=== PATIENT | female | born 1975 | race Caucasian/White ===

== ENCOUNTER 2018-12-04 03:45 | Emergency (ER) | payer SELFPAY, OTHER | END 2018-12-04 10:33 | disposition home or self-care (01) | LOC: JER 03:45 ==

== ENCOUNTER 2022-04-04 09:07 | Inpatient (IN) | payer OTHER ==
[2022-04-04 12:31] LABS: BASO % 0.3 % (0-2.0); EOS % 1.2 % (0-4.5); HEMATOCRIT 27.3 % (32.4-45.2); HEMOGLOBIN 9.2 GM/dL (10.7-15.3); LYMPH % 11.1 % (8-40); MCH 31.1 pg (25.7-33.7); MCHC 33.8 g/dl (32.0-36.0); MEAN CELL VOLUME 92.1 fl (80-96); MEAN PLT VOLUME 9.9 fl (7.5-11.1); MONO % 8.9 % (3.8-10.2); NEUT % 78.5 % (42.8-82.8); PLATELET COUNT 77 10^3/uL (134-434); RBC 2.97 M/mm3 (3.60-5.2); RDW 12.7 % (11.6-15.6); WHITE BLOOD COUNT 6.7 K/mm3 (4.0-10.0)
[2022-04-04 12:44] LABS: CHLORIDE 100 mmol/L (98-107); SODIUM 139 mmol/L (136-145)
[2022-04-04 12:47] LABS: ANION GAP 10 MMOL/L (8-16); BLOOD UREA NITROGEN 34.2 mg/dL (7-18); CO2 29 mmol/L (21-32); GLUCOSE,RANDOM 85 mg/dL (74-106)
[2022-04-04 12:50] LABS: SGPT/ALT 44 U/L (13-61)
[2022-04-04 12:51] LABS: BILIRUBIN,TOTAL 0.3 mg/dL (0.2-1); SGOT/AST 34 U/L (15-37); TOT PROT 5.7 g/dl (6.4-8.2)
[2022-04-04 12:53] LABS: ALK PHOS 198 U/L (45-117)
[2022-04-04 13:10] LABS: CALCIUM 16.7 mg/dL (8.5-10.1)
[2022-04-04] MEDS ORDERED: SODIUM CHLORIDE 1,000 ML IV ONE (13:14)
[2022-04-04] MEDS: CALCITONIN - SALMON SYNTHETIC 400 UNIT/2 ML VIAL IM SCH (18:08)
[2022-04-04] MEDS ORDERED: TRIMETHOBENZAMIDE HCL 200MG/2ML INJ IM ONE (18:24)
[2022-04-04] MEDS: SODIUM CHLORIDE 1,000 ML IV SCH (22:40)
[2022-04-05] MEDS ORDERED: traMADol HCL 50 MG TABLET PO ONE (00:03)
[2022-04-05] MEDS ORDERED: HEPARIN NA (PORCINE) 5,000 UNITS/ML 1ML VIAL ONE (00:40)
[2022-04-05] MEDS: CALCITONIN - SALMON SYNTHETIC 400 UNIT/2 ML VIAL IM SCH ×2 (01:18→12:28)
[2022-04-05] MEDS: HEPARIN NA (PORCINE) 5,000 UNITS/ML 1ML VIAL SQ SCH ×3 (01:18→14:29)
[2022-04-05 08:53] LABS: HEMATOCRIT 26.5 % (32.4-45.2); HEMOGLOBIN 9.1 GM/dL (10.7-15.3); MCH 31.5 pg (25.7-33.7); MCHC 34.3 g/dl (32.0-36.0); MEAN CELL VOLUME 91.8 fl (80-96); MEAN PLT VOLUME 10.2 fl (7.5-11.1); PLATELET COUNT 93 10^3/uL (134-434); RBC 2.89 M/mm3 (3.60-5.2); RDW 12.5 % (11.6-15.6); WHITE BLOOD COUNT 6.9 K/mm3 (4.0-10.0)
[2022-04-05 09:17] LABS: CHLORIDE 106 mmol/L (98-107); SODIUM 140 mmol/L (136-145)
[2022-04-05 09:25] LABS: BLOOD UREA NITROGEN 14.7 mg/dL (7-18)
[2022-04-05 09:26] LABS: ANION GAP 7 MMOL/L (8-16); CO2 27 mmol/L (21-32); GLUCOSE,RANDOM 122 mg/dL (74-106); MAGNESIUM 2.5 mg/dL (1.8-2.4); TOTAL IRON BINDING CAPACITY 183 ug/dL (250-450)
[2022-04-05 09:28] LABS: BILIRUBIN,TOTAL 0.8 mg/dL (0.2-1); CREATININE 1.8 mg/dL (0.55-1.3); IRON SERUM 98 ug/dL (50-175); PHOSPHOROUS 3.3 mg/dL (2.5-4.9); SGOT/AST 14 U/L (15-37); SGPT/ALT 18 U/L (13-61)
[2022-04-05 10:13] LABS: ALBUMIN 3.6 g/dl (3.4-5.0); ALK PHOS 69 U/L (45-117); CALCIUM 8.6 mg/dL (8.5-10.1); TOT PROT 7.8 g/dl (6.4-8.2)
[2022-04-05 12:07] LABS: LDH 516 U/L (84-246)
[2022-04-05] MEDS ORDERED: SODIUM CHLORIDE 1,000 ML IV SCH (16:40)
[2022-04-05] MEDS: SODIUM CHLORIDE 1,000 ML IV SCH (17:06)
[2022-04-06] MEDS: HEPARIN NA (PORCINE) 5,000 UNITS/ML 1ML VIAL SQ SCH ×4 (00:51→22:00)
[2022-04-06 08:19] LABS: BASO % 0.6 % (0-2.0); EOS % 2.3 % (0-4.5); HEMOGLOBIN 8.9 GM/dL (10.7-15.3); LYMPH % 10.4 % (8-40); MCH 31.3 pg (25.7-33.7); MCHC 34.3 g/dl (32.0-36.0); MEAN CELL VOLUME 91.3 fl (80-96); MEAN PLT VOLUME 9.7 fl (7.5-11.1); NEUT % 77.7 % (42.8-82.8); PLATELET COUNT 80 10^3/uL (134-434); RBC 2.85 M/mm3 (3.60-5.2); RDW 12.5 % (11.6-15.6)
[2022-04-06 08:40] LABS: CHLORIDE 104 mmol/L (98-107); SODIUM 141 mmol/L (136-145)
[2022-04-06 09:24] LABS: GLUCOSE,RANDOM 83 mg/dL (74-106)
[2022-04-06 09:25] LABS: SGOT/AST 34 U/L (15-37); SGPT/ALT 32 U/L (13-61)
[2022-04-06 09:26] LABS: ALBUMIN 2.9 g/dl (3.4-5.0); ANION GAP 12 MMOL/L (8-16); CO2 25 mmol/L (21-32)
[2022-04-06 09:31] LABS: BILIRUBIN,TOTAL 0.5 mg/dL (0.2-1)
[2022-04-06 09:50] LABS: ALK PHOS 211 U/L (45-117); BLOOD UREA NITROGEN 44.8 mg/dL (7-18); CALCIUM 14.9 mg/dL (8.5-10.1); TOT PROT 5.6 g/dl (6.4-8.2)
[2022-04-06] MEDS ORDERED: POTASSIUM CHLORIDE TABS 20 MEQ TABLET.ER (FP) PO ONE (11:32)
[2022-04-06] MEDS: CALCITONIN - SALMON SYNTHETIC 400 UNIT/2 ML VIAL IM SCH ×2 (13:18→21:59)
[2022-04-06] MEDS: SODIUM CHLORIDE 1,000 ML IV SCH ×2 (13:19→22:00)
[2022-04-06 15:33] VITALS: BMI 20.2
[2022-04-06] MEDS: traMADol HCL 50 MG TABLET PO PRN (15:33)
[2022-04-06 22:01] LABS: PH,URINE 7.5 (5.0-8.0); URINE APPEARANCE CLEAR; URINE BILIRUBIN NEGATIVE (NEGATIVE); URINE COLOR YELLOW; URINE GLUCOSE (UA) NEGATIVE (NEGATIVE); URINE KETONE NEGATIVE (NEGATIVE); URINE LEUK ESTERASE NEGATIVE (NEGATIVE); URINE NITRITE NEGATIVE (NEGATIVE); URINE PROTEIN NEGATIVE (NEGATIVE); URINE UROBILINOGEN 0.2 mg/dL (0.2-1.0)
[2022-04-07] MEDS: HEPARIN NA (PORCINE) 5,000 UNITS/ML 1ML VIAL SQ SCH ×3 (06:21→22:42)
[2022-04-07 10:58] LABS: CHLORIDE 107 mmol/L (98-107); SODIUM 139 mmol/L (136-145)
[2022-04-07 11:05] LABS: ANION GAP 11 MMOL/L (8-16); BLOOD UREA NITROGEN 34.5 mg/dL (7-18); CO2 21 mmol/L (21-32); GLUCOSE,RANDOM 78 mg/dL (74-106); MAGNESIUM 1.6 mg/dL (1.8-2.4)
[2022-04-07 11:06] LABS: ALBUMIN 2.9 g/dl (3.4-5.0)
[2022-04-07 11:09] LABS: CREATININE 2.4 mg/dL (0.55-1.3)
[2022-04-07 11:10] LABS: BILIRUBIN,TOTAL 0.4 mg/dL (0.2-1); SGOT/AST 41 U/L (15-37); SGPT/ALT 30 U/L (13-61); TOT PROT 5.8 g/dl (6.4-8.2)
[2022-04-07 11:11] LABS: ALK PHOS 217 U/L (45-117)
[2022-04-07 11:17] LABS: CALCIUM 14.2 mg/dL (8.5-10.1)
[2022-04-07] MEDS ORDERED: MAGNESIUM OXIDE 400 MG TABLET (FP) PO ONE (11:34)
[2022-04-07] MEDS: SODIUM CHLORIDE 1,000 ML IV SCH (12:20)
[2022-04-07] MEDS: CALCITONIN - SALMON SYNTHETIC 400 UNIT/2 ML VIAL IM SCH ×2 (12:54→23:00)
[2022-04-07] MEDS: traMADol HCL 50 MG TABLET PO PRN (15:09)
[2022-04-07] MEDS ORDERED: MAGNESIUM SULF 50% (8.12 MEQ/2 ML-1 GM VIAL) IVPB ONE (20:02)
[2022-04-07] MEDS ORDERED: MAGNESIUM 1GM/D5W - 1 GM/100 ML IVPB IVPB ONE (21:08)
[2022-04-08] MEDS: HEPARIN NA (PORCINE) 5,000 UNITS/ML 1ML VIAL SQ SCH ×3 (06:31→21:13)
[2022-04-08 09:19] LABS: ALBUMIN 2.8 g/dl (3.4-5.0); CALCIUM 12.7 mg/dL (8.5-10.1); MAGNESIUM 1.8 mg/dL (1.8-2.4)
[2022-04-08 09:22] LABS: CREATININE 2.1 mg/dL (0.55-1.3); PHOSPHOROUS 2.6 mg/dL (2.5-4.9)
[2022-04-08 09:23] LABS: BILIRUBIN,TOTAL 0.3 mg/dL (0.2-1)
[2022-04-08 09:24] LABS: TOT PROT 5.2 g/dl (6.4-8.2)
[2022-04-08] MEDS ORDERED: POTASSIUM CHLORIDE TABS 20 MEQ TABLET.ER (FP) PO ONE (12:09)
[2022-04-08] MEDS: SODIUM CHLORIDE 1,000 ML IV SCH (12:38)
[2022-04-08 15:07] LABS: ASLO SCREEN <20.0 IU/mL (0.0-200.0)
[2022-04-08 15:07] LABS: THYROID STIM IMMUNOGLOBULIN <0.10 IU/L (0.00-0.55)
[2022-04-08] MEDS: traMADol HCL 50 MG TABLET PO PRN (15:30)
[2022-04-09] MEDS: HEPARIN NA (PORCINE) 5,000 UNITS/ML 1ML VIAL SQ SCH ×3 (05:36→21:46)
[2022-04-09] MEDS ORDERED: POTASSIUM CHLORIDE TABS 20 MEQ TABLET.ER (FP) PO ONE (11:29)
[2022-04-09] MEDS: SODIUM CHLORIDE 1,000 ML IV SCH (14:01)
[2022-04-09] MEDS: traMADol HCL 50 MG TABLET PO PRN (16:32)
[2022-04-09 18:07] LABS: FREE KAPPA,SERUM 56.1 mg/L (3.3-19.4)
[2022-04-09 19:07] LABS: ANTIGLOMERULAR BASEMENT MEN.AB <0.2 units (0.0-0.9); ATYPICAL pANCA <1:20 titer (Neg:<1:20); C-ANCA <1:20 titer (Neg:<1:20)
[2022-04-09] MEDS: MELATONIN 5 MG TABLETS PO PRN (21:46)
[2022-04-10] MEDS: HEPARIN NA (PORCINE) 5,000 UNITS/ML 1ML VIAL SQ SCH ×3 (05:19→21:04)
[2022-04-10 07:50] LABS: BASO % 0.4 % (0-2.0); EOS % 4.1 % (0-4.5); HEMATOCRIT 23.6 % (32.4-45.2); HEMOGLOBIN 8.1 GM/dL (10.7-15.3); LYMPH % 21.1 % (8-40); MCH 31.2 pg (25.7-33.7); MCHC 34.4 g/dl (32.0-36.0); MEAN CELL VOLUME 90.8 fl (80-96); MEAN PLT VOLUME 9.3 fl (7.5-11.1); MONO % 7.7 % (3.8-10.2); NEUT % 66.7 % (42.8-82.8); PLATELET COUNT 67 10^3/uL (134-434); RDW 12.4 % (11.6-15.6); WHITE BLOOD COUNT 4.3 K/mm3 (4.0-10.0)
[2022-04-10 08:08] LABS: ALBUMIN 2.6 g/dl (3.4-5.0); BLOOD UREA NITROGEN 13.2 mg/dL (7-18); CALCIUM 12.3 mg/dL (8.5-10.1); MAGNESIUM 1.8 mg/dL (1.8-2.4)
[2022-04-10 08:11] LABS: CREATININE 1.9 mg/dL (0.55-1.3); PHOSPHOROUS 2.5 mg/dL (2.5-4.9)
[2022-04-10 08:12] LABS: BILIRUBIN,TOTAL 0.2 mg/dL (0.2-1)
[2022-04-10 08:13] LABS: TOT PROT 5.1 g/dl (6.4-8.2)
[2022-04-10] MEDS ORDERED: POTASSIUM CHLORIDE TABS 20 MEQ TABLET.ER (FP) PO ONE (09:37)
[2022-04-10 12:22] LABS: HIV INTERPRETATION NEGATIVE (NEGATIVE)
[2022-04-10] MEDS: POTASSIUM CHLORIDE 10 MEQ in SODIUM CHLORIDE 0.45% 1,000 ML IVPB SCH ×2 (17:01→21:04)
[2022-04-10] MEDS ORDERED: MAGNESIUM HYDROX 2400MG/30ML ORAL SUSPENSION 30 ML CUP PO ONE (17:07)
[2022-04-10] MEDS: MELATONIN 5 MG TABLETS PO PRN (21:04)
[2022-04-11] MEDS: HEPARIN NA (PORCINE) 5,000 UNITS/ML 1ML VIAL SQ SCH ×3 (06:00→21:03)
[2022-04-11] MEDS: POTASSIUM CHLORIDE 10 MEQ in SODIUM CHLORIDE 0.45% 1,000 ML IVPB SCH ×3 (06:00→15:57)
[2022-04-11] MEDS: METHIMAZOLE 5 MG TABLET PO SCH ×2 (10:08→21:04)
[2022-04-11 13:22] LABS: CALCIUM 13.5 mg/dL (8.5-10.1)
[2022-04-11 13:23] LABS: BLOOD UREA NITROGEN 9.1 mg/dL (7-18)
[2022-04-11 13:25] LABS: CREATININE 1.8 mg/dL (0.55-1.3)
[2022-04-11 13:27] LABS: BILIRUBIN,TOTAL 0.3 mg/dL (0.2-1); TOT PROT 6.1 g/dl (6.4-8.2)
[2022-04-11 13:35] LABS: ALBUMIN 3.2 g/dl (3.4-5.0)
[2022-04-11] MEDS: MELATONIN 5 MG TABLETS PO PRN (22:11)
[2022-04-12] MEDS: POTASSIUM CHLORIDE 10 MEQ in SODIUM CHLORIDE 0.45% 1,000 ML IVPB SCH ×3 (05:03→23:11)
[2022-04-12] MEDS: HEPARIN NA (PORCINE) 5,000 UNITS/ML 1ML VIAL SQ SCH ×3 (05:17→23:11)
[2022-04-12] MEDS: METHIMAZOLE 5 MG TABLET PO SCH ×2 (09:27→23:12)
[2022-04-12 13:46] LABS: CALCIUM 12.4 mg/dL (8.5-10.1)
[2022-04-12 13:47] LABS: ALBUMIN 3.1 g/dl (3.4-5.0); BLOOD UREA NITROGEN 10.3 mg/dL (7-18)
[2022-04-12 13:52] LABS: BILIRUBIN,TOTAL 0.5 mg/dL (0.2-1); TOT PROT 5.8 g/dl (6.4-8.2)
[2022-04-12 14:01] LABS: CREATININE 1.5 mg/dL (0.55-1.3)
[2022-04-12] MEDS ORDERED: POTASSIUM CHLORIDE TABS 20 MEQ TABLET.ER (FP) PO ONE (16:25)
[2022-04-12] MEDS: MELATONIN 5 MG TABLETS PO PRN (23:12)
[2022-04-13] MEDS: HEPARIN NA (PORCINE) 5,000 UNITS/ML 1ML VIAL SQ SCH ×3 (06:35→21:36)
[2022-04-13] MEDS: METHIMAZOLE 5 MG TABLET PO SCH ×2 (09:54→21:36)
[2022-04-13] MEDS: POTASSIUM CHLORIDE 10 MEQ in SODIUM CHLORIDE 0.45% 1,000 ML IVPB SCH (09:55)
[2022-04-13 18:06] VITALS: RESP 18
[2022-04-13] MEDS: MELATONIN 5 MG TABLETS PO PRN (23:19)
[2022-04-14] MEDS: HEPARIN NA (PORCINE) 5,000 UNITS/ML 1ML VIAL SQ SCH ×3 (06:23→21:24)
[2022-04-14] MEDS: METHIMAZOLE 5 MG TABLET PO SCH ×2 (10:15→21:24)
[2022-04-15] MEDS: HEPARIN NA (PORCINE) 5,000 UNITS/ML 1ML VIAL SQ SCH ×2 (05:09→15:00)
[2022-04-15] MEDS: METHIMAZOLE 5 MG TABLET PO SCH (10:03)
[2022-04-15 14:47] VITALS: BP 129/58; PULSE 71; TEMP 98.5
== END 2022-04-15 18:08 | disposition home or self-care (01) | DRG 643 ==
LOC: JER 09:07 → JERBED 13:17 → J4S 04-06 03:49
PROVIDERS: ADMIT Internal Medicine; ATTEND Nurse Practitioner Family
DX: E05.90 Thyrotoxicosis, unspecified without thyrotoxic crisis or storm (principal); U07.1 COVID-19; N17.9 Acute kidney failure, unspecified; D69.6 Thrombocytopenia, unspecified; E03.9 Hypothyroidism, unspecified; D64.9 Anemia, unspecified; R63.4 Abnormal weight loss; M79.7 Fibromyalgia; E83.52 Hypercalcemia; Z68.20 Body mass index [BMI] 20.0-20.9, adult
CPT/HCPCS: 0241U-QW; 36415; 72195-TC; 74181-TC; 76705-TC; 76775-TC; 80053; 81003; 82306; 82436; 82607; 82728; 82746; 83516; 83520; 83540; 83550; 83615; 83735; 83883; 83970; 84100; 84133; 84155; 84165; 84300; 84439; 84443; 84445; 84481; 84702; 85025; 85027; 86038; 86060; 86256; 86304; 87070; 87340; 87389; 87517; 93005; 93010; 97116-GP; 97161-GP; 99285-25